=== PATIENT | female | born 1975 | race Caucasian/White ===

== ENCOUNTER → 2017-05-01 | Outpatient (CLI) | payer BC ==
[~2017-05-01] MED LIST: ASPIRIN325 PO; FLEXERIL PO; MOBIC7.5 MG PO; MULTIVITAMINS1 EAC7; NAPROSYN500 MG PO; TRAMADOL 50 MG50 MG PO; VALIUM5 MG PO
== END ==
LOC: RAD 00:24
DX: Z12.31 Encounter for screening mammogram for malignant neoplasm of breast (principal)

== ENCOUNTER → 2018-05-02 | Outpatient (CLI) | payer BC | LOC: RAD 03:35 | DX: Z12.31 Encounter for screening mammogram for malignant neoplasm of breast (principal) ==

== ENCOUNTER → 2019-05-04 | Outpatient (CLI) | payer BC | LOC: RAD 01:23 | DX: Z12.31 Encounter for screening mammogram for malignant neoplasm of breast (principal) ==

== ENCOUNTER → 2020-06-01 | Outpatient (CLI) | payer BC | LOC: BC 05-26 13:01 | PROVIDERS: ATTEND Obstetrics & Gynecology | DX: Z12.31 Encounter for screening mammogram for malignant neoplasm of breast (principal) ==

== ENCOUNTER → 2020-06-06 | Outpatient (CLI) | payer BC | LOC: ULTRA 09:20 | PROVIDERS: ATTEND Obstetrics & Gynecology | DX: N63.10 Unspecified lump in the right breast, unspecified quadrant (principal); N64.89 Other specified disorders of breast ==

== ENCOUNTER → 2020-08-17 | Outpatient (CLI) | payer BC | LOC: LAB 14:22 | PROVIDERS: ATTEND Nurse Practitioner | DX: Z20.828 Contact with and (suspected) exposure to other viral communicable diseases (principal) ==

== ENCOUNTER → 2020-11-16 | Outpatient (CLI) | payer BC | LOC: RAD 12:30 | PROVIDERS: ATTEND Obstetrics & Gynecology | DX: N63.10 Unspecified lump in the right breast, unspecified quadrant (principal) ==